=== PATIENT | female | born 1930 | race Caucasian/White ===

== ENCOUNTER 2017-05-11 15:11 | Emergency (ER) | payer OTHER ==
[~2017-05-11] VITALS: Ht 165.1 cm; Wt 68.0 kg
[~2017-05-11 15:11] MED LIST: GABAPENTIN100 MG PO; KEFLEX500 MG PO; OMEPRAZOLE DR20 MG PO; SINGULAIR10 MG PO; TRIAZOLAM0.125 MG PO
[2017-05-11 15:46] VITALS: BP 166/80
[2017-05-11 16:26] LABS: HEMOGLOBIN 12.5 g/dl (12.0-16.0); MEAN CELL VOLUME 87.7 fl (81.0-99.0); MEAN CORPUSCULAR HGB 29.6 pg (27.0-31.0); MEAN CORPUSCULAR HGB CONC 33.8 g/dl (33.0-37.0); MEAN PLATELET VOLUME 10.1 fl (9.6-12.3); PLATELET COUNT AUTOMATED 452 10*3/uL (130-400); RED BLOOD COUNT 4.22 10*6/uL (4.10-5.10); RED CELL DISTRI WIDTH 12.6 % (0-14.5)
[2017-05-11 16:35] LABS: ACT PARTIAL THROMBO TIME 20.6 SECONDS (20.8-31.5)
[2017-05-11 16:41] LABS: ALBUMIN 3.5 gm/dl (3.1-4.5); ALKALINE PHOSPHATASE 82 U/L (45-117); BUN 25 mg/dl (7-24); CHLORIDE 99 mmol/L (98-107); CREATININE 1.39 mg/dL (0.55-1.02); LIPASE 62 U/L (73-393); POTASSIUM 4.6 mmol/L (3.5-5.1); SGOT/AST 24 IU/L (3-35); SGPT/ALT 36 U/L (12-78); SODIUM 135 mmol/L (136-145); TOTAL PROTEIN 6.9 gm/dL (6.4-8.2)
[2017-05-11 16:42] LABS: TROPONIN I < 0.015 ng/ml (<0.045)
[2017-05-11 16:46] LABS: TOTAL CELLS COUNTED 100 #CELLS
[2017-05-11 16:47] LABS: PLATELET SUFFICIENCY NORMAL (NORMAL)
[2017-05-11 17:10] VITALS: BP 160/90
[2017-05-11 19:01] VITALS: BP 158/65
[2017-05-11] MEDS ORDERED: ZITHROMAX250 MG PO (19:41)
[2017-05-11] MEDS ORDERED: HYCODAN/HYDROMET5 ML PO (19:42)
== END 2017-05-11 21:24 | disposition admitted as inpatient to this hospital (09) ==
LOC: ED 15:11 → EDHOLD 19:30 → ED 21:24
PROVIDERS: Nurse Practitioner Family
DX: J18.9 Pneumonia, unspecified organism (principal); Z90.710 Acquired absence of both cervix and uterus; Z79.899 Other long term (current) drug therapy

== ENCOUNTER → 2019-11-03 | Outpatient (CLI) | payer MEDICARE ==
[~2019-11-03] MED LIST changes: +ALBUTEROL2.5 MG/0.5 INH; +HYCODAN/HYDROMET5 ML PO; +VIBRAMYCIN100 MG PO; +ZITHROMAX250 MG PO
== END | disposition home or self-care (01) ==
LOC: COVID19 11:43
DX: R05 Cough (principal); Z20.828 Contact with and (suspected) exposure to other viral communicable diseases